=== PATIENT | female | born 2000 | race Caucasian/White ===

== ENCOUNTER 2025-03-27 14:12 | Outpatient (CLI) | payer OTHER, SELFPAY ==
--- NOTE | ~2025-03-27 | MR_ITS ---
EXAMINATION: MR pelvis wo/w con DATE: 03/27/2025 15:32 INDICATION: Ovarian mass TECHNIQUE: Magnetic resonance imaging (MRI) of the pelvis was performed without and with 20 mL Multih ance intravenous contrast. Fullfield sequences of the pelvis included axial and coronal T2-weighted S S FSE, coronal 2D FIESTA, axial T1-weighted FSPGR, axial dual-echo T1-weighted FSPGR and axial T1 claude ghted LAVA. Small field of view sequences included axial, sagittal and coronal T2-weighted FSE cente red on the uterus and adnexa. Postcontrast sequences included a time course axial T1-weighted LAVA w ith full-field of view of the pelvis. COMPARISON: None. FINDINGS: Normal anteverted uterus with normal endometrial complex thickness of 3 mm. Bladder is normal. Right ovary measures 5.7 x 3.5 x 1.8 cm and the left ovary measures 3.9 x 2.7 x 2.5 cm. There are over 20 c m T2 hyperintense cyst/follicles within both the left and right ovaries consistent with polycystic ov kumar disease. There is ar 11.7 x 7.7 x 10.3 cm homogeneously T2 hyperintense simple appearing thin-w alled right adnexal cyst which appears to arise from the cephalad margin of the right ovary. No inter nal septations or solid nodular soft tissue component to suggest neoplasm. Bladder is normal. Visuali zed portion of the bowels including the appendix and the visualized lower portions of the lower poles of both kidneys are normal. No free fluid in the pelvis. No pathologically enlarged abdominal, pelvi c or inguinal lymphadenopathy. Disc desiccation, mild disc height loss, annular fissure and mild post erior disc protrusion at L5-S1. IMPRESSION: 1. 11.7 cm simple appearing right ovarian cyst with numerous subcentimeter cysts/follicles at both ov dean suspicion for polycystic ovarian disease. Reviewed, dictated and finalized at location A. IMPRESSION: 1. 11.7 cm simple appearing right ovarian cyst with numerous subcentimeter cyst s/follicles at both ovaries suspicion for polycystic ovarian disease.
== END 2025-03-27 14:13 | disposition home or self-care (01) ==
PROVIDERS: PCP Internal Medicine; Visit Provider Internal Medicine
DX: N83.8 Other noninflammatory disorders of ovary, fallopian tube and broad ligament (principal); N83.201 Unspecified ovarian cyst, right side
CPT/HCPCS: 72197; A9577

== ENCOUNTER 2025-05-08 14:07 | Outpatient (CLI) | payer OTHER, SELFPAY ==
--- NOTE | 2025-05-08 15:36 | ECG_ITS ---
Test Date: 2025-05-08 15:50:47 Measurements Intervals [place] Rate: 94 P: 33 UT: 170 QRS: 54 QRSD: 98 T: 49 QT: 357 QTc: 447 Interpretive Statements SINUS RHYTHM NORMAL ECG No previous ECG available for comparison Electronically Signed On 05-08-2025 17:19:42 CDT by Dakota Arevalo M.D.
[2025-05-08 16:08] LABS: Anion Gap 7 mmol/L (4-12); Blood Urea Nitrogen 9 mg/dL (7-17); Calcium 9.4 mg/dL (8.4-10.2); Carbon Dioxide 26 mmol/L (22-30); Chloride 103 mmol/L (98-107); Estimated Glomerular Filt Rate > 60; Glucose 105 mg/dL (65-110); Potassium 3.8 mmol/L (3.4-5.0); Sodium 136 mmol/L (137-145)
--- OUTSIDE RECORDS SUMMARY | 2025-05-08 16:40 | XMS_ITS | Encounter Summary ---
Author Organization [facility] Address [address] [place] [address] Care Team Providers Care Reel Worker Name Role Phone Kristopher Courtney MD Primary Care Provider [phone] Encounter Details Date Type Department Care Team (Latest Contact Info) Description 09/25/2024 [place] Message Enc [facility] Mult[facility]pec[facility] Care [place] [address] [address] [address] [place] [address] [place] [address] [place] [address] [address] [place] [address] Ultrasound results Social History Tobacco Use Types Packs/Day Years Used Date Smoking Tobacco: Never Passive Smoke Exposure: Never Smokeless Tobacco: Never Comments:Counseled by Dr. Angelina redmond. Alcohol Use Standard Drinks/Week Comments Not Currently 0 (1 standard drink = 0.6 oz pure alcohol) A couple drinks once or twice a month, socially PHQ-2 Answer Date Recorded Patient Health Questionnaire-2 Score 0 09/04/2024 Comments Unknown Sex and Gender Information Value Date Recorded Sex Assigned at Female 09/18/2024 3:22 PM FURNITURE SALES ASSOCIATE Legal Sex Female 3:00 PM CDT Gender Identity Female 11/28/2024 8:18 AM CDT Sexual Orientation Straight 11/28/2024 8: 18 AM CDT documented as of this encounter Plan of Treatment Upcoming Encounters Date Type Department Care Team (Late st Contact Info) Description 06/08/2025 4:00 PM CDT Office Visit [facility] - [address] [place] [address] Kristopher Courtney MD [address] [place] [address] documented as of this encounter Visit Diagnoses Not on filedocumented in this encounter Additional Health Concerns Assessment Noted Time PHQ-9 Depression Total Score: 1 09/04/19 25 7:48 AM FURNITURE SALES ASSOCIATE documented as of this encounter Care Teams Reel Worker Relationship Specialty Start Date End Date Kristopher Courtney MD [address] [place] [address] PCP - General INTERNAL MEDICINE 06/01/23 documented as of this encounter
--- OUTSIDE RECORDS SUMMARY | 2025-05-08 16:40 | XMS_ITS | Encounter Summary ---
Author Organization [facility] Address [address] [place] [address] Care Team Providers Care Change Management Coordinator Name Role Phone Kristopher Courtney MD Primary Care Provider [phone] Encounter Details Date Type Department Care Team (Late st Contact Info) Description 10/25/2024 Refinder by Gnowsist Message Enc [facility] Mult[facility]ty Care [place] [address] [address] [address] [place], [place] [id number] Kristopher Courtney MD [address] [place] [address] [address] [place] [address] Piero Social History Tobacco Use Types Packs/Day Years [...] Sex Assigned at Female 09/18/2024 3:22 PM BANANA GRADER Legal Sex Female 3:00 PM CDT Gender Identity Female 11/28/2024 8:18 AM CDT Sexual Orientation Straight 11/28/2024 8: 18 AM CDT documented as of this encounter Plan of Treatment Upcoming Encounters Date Type Department Care Team (Late st Contact Info) Description 06/08/2025 4:00 PM CDT Office Visit [facility] - [place] [address] [place] [address] [address] [place] [address] Kristopher Courtney MD [address] [address] documented as of this encounter Visit Diagnoses Not on filedocumented in this encounter Additional Health Concerns Assessment Noted Time PHQ-9 Depression Total Score: 1 09/04/19 25 7:48 AM BANANA GRADER documented as of this encounter Care Teams Change Management Coordinator Relationship Specialty Start Date End Date Kristopher Courtney MD [address] [place] [address] PCP - General INTERNAL MEDICINE 06/01/23 documented as of this encounter
--- OUTSIDE RECORDS SUMMARY | 2025-05-08 16:40 | XMS_ITS | Clinical Summary ---
Author Organization [email or web address] Address [address] [facility] [place] [address] Care Team Providers Care Keyboard Specialist Name Role Phone Unavailable Primary Care Provider Unavailabl e Source Comments [email or web address],non-owned Affiliates and Associated Physician Practices is amultiple site organization consisting of ambulatory clinics and hospital sitesin [place], [place] and [place]. This disclosure is being madepursuant to the Care Everywhere program and may not contain all information available regarding this patient. Last updated 18.[email or web address] Allergies No known active allergies Social History Tobacco Use Types Packs/Day Years Used Date Smoking Tobacco: Never Assessed Comments Unknown Sex and Gender Information Value Date Recorded Sex Assigned at Not on file Legal Sex Female 11:08 AM TANK INSULATOR RUBBER Gender Identity Not on file Sexual Orientation Not on file Plan of Treatment Health Maintenance Due Date Last Done Comments HIV SCREENING 2013 HPV VACCINE (1 - 3-dose series) 2013 HEPATITIS C SCREENING 09/25/2016 DTAP/TDAP/TD VACCINES (1 - Tdap) 2017 HEPATITIS B VACCINE (1 of 3 - 19+ 3-dose series) 2017 DEPRESSION SCREENING 08/23/2024 COVID-19 VACCINE ( - 2024-2 6 season) 2025 10/10/2020, 09/19/2020 INFLUENZA VACCINE (#1) 2025 ZOSTER VACCINE (1 of 2) 2048 HIB VACCINE Aged Out No longer eligi ble based on patient's age to complete this topic MENINGOCOCCAL (Group B) VACCINE SHARED DECISION-MAKING Aged Out No longer eligible based on patient's age to complete this topic MENINGOCOCCAL GROUPS A/C/Y/W VACCINE Aged Out No longer eligible b ased on patient's age to complete this topic PNEUMOCOCCAL VACCINE Aged Out No long er eligible based on patient's age to complete this topic Insurance [place] [address]
--- OUTSIDE RECORDS SUMMARY | 2025-05-08 16:40 | XMS_ITS | Encounter Summary ---
Author Organization [facility] Address [address] [place] [address] Care Team Providers Care Dwarf Tree Grower Name Role Phone Kristopher Courtney MD Primary Care Provider [phone] Encounter Details Date Type Department Care Team (Latest Contact Info) Description 12/31/2023 Snacksquaret Message Enc [facility] Multispecialty [address] [address] [address] [address] [place], [place] [phone] Kristopher Courtney MD [address] [place] [address] [address] [place] [address] HPV Vaccine and Pap records Social History Tobacco Use Types Packs/Day Years Used Date Smoking Tobacco: Never Passive Smoke Exposure: Never Smokeless Tobacco: Never Comments:Counseled by Dr. Angelina redmond. Alcohol Use Standard Drinks/Week Comments Never 0 (1 standard drink = 0.6 oz pur e alcohol) PHQ-2 Answer Date Recorded Patient Health Questionnaire-2 Score 0 08/10/2023 Comments Unknown Sex and Gender Information Value Date Recorded Sex Assigned at Female 09/18/2024 3:22 PM BURNING SUPERVISOR Legal Sex Female 3:00 PM CDT Gender Identity Female 11/28/2024 8:18 AM CDT Sexual Orientation Straight 11/28/2024 8: 18 AM CDT documented as of this encounter Plan of Treatment Upcoming Encounters Date Type Department Care Team (Late st Contact Info) Description 06/08/2025 4:00 PM CDT Office Visit [facility] - [address] [place] [address] Kristopher Courtney MD [facility] [address] documented as of this encounter Visit Diagnoses Not on filedocumented in this encounter Additional Health Concerns Assessment Noted Time PHQ-9 Depression Total Score: 1 08/10/20 23 3:44 PM BURNING SUPERVISOR documented as of this encounter Care Teams Dwarf Tree Grower Relationship Specialty Start Date End Date Kristopher Courtney MD [address] [place] [address] PCP - General INTERNAL MEDICINE 06/01/23 documented as of this encounter
--- OUTSIDE RECORDS SUMMARY | 2025-05-08 16:40 | XMS_ITS | Clinical Summary ---
Author Organization [facility] Address [facility] [place] [address] Care Team Providers Care Carpet Journeyman Name Role Phone Kristopher Courtney MD Primary Care Provider [phone] Allergies Active Allergy Reactions Criticality Noted Date Comments Tirzepatide GI Upset 11/28/2024 Medications EEVLIN NAKIA 09/11 1-20 MG-MCG tablet 2 Active ondansetron (ZOFRAN) 4 MG tabletIndication s:Nausea Take 1 tablet (4 mg total) by mouth every 8 (eight) hours as needed. 30 tablet 5 Active Additional Information Patient taking differently: No details specified, Reason: on 7mg till pharmacy can get 14mg, Reported on 02/28/2025 fenofibrate 160 MG tabletIndication s:Hypertriglycer idemia Take 1 tablet (160 mg total) by mouth daily. 90 tablet 1 5 Active semaglutide (RYBELSUS) 14 MG tabletIndication s:Diabetes Mellitus Take 1 tablet (14 mg total) by mouth every morning before breakfast. Indications: Diabetes 90 tablet 1 5 Active topiramate (TOPAMAX) 25 MG tabletIndication s:Class 3 severe obesity due to excess calories with serious comorbidity and body mass index (BMI) of 40.0 to 44.9 in adult (CMS/[facility]) Take one tablet daily for the first 7 days then change to one tablet twice daily. 60 tablet 3 5 Active metFORMIN ER (GLUCOPHAGE-XR) 500 MG 24 hr tabletIndication s:Type 2 diabetes mellitus with hyperglycemia, without long-term current use of insulin ([facility]) Take 2 tablets (1,000 mg total) by mouth daily with breakfast. 180 tablet 1 Active Active Problems Problem Noted Date Diagnosed Date PCOS (polycystic ovarian syndrome) 04/02/2025 Hypertriglyceridemia 12/31/2023 Diabetes mellitus due to und erlying condition with hyperglycemia, without long-term current use of insulin ([facility]) 12/28/2023 Encounters Date Type Department Care Team Description 04/02/2025 Telephone [place] [id number] [facility] [address] [place] [address] Kristopher Courtney MD Referral 03/27/2025 [employer] INFO SRVCS Scanned, Doc [facility] MRI (SCAN) 02/28/2025 4:00 PM CDT Office Visit [place] [address] [address] [facility] [address] [place] [address] Kristopher Courtney MD Follow Up (Patient is here for 3 month follow up about blood sugars. She does not check at home but says that she is monitoring it with the doctor. ); Weight Problem; Diabetes 02/28/2025 Results Follow-Up [place] [id number] [facility] [address] [place] [address] Kristopher Courtney MD HEMOGLOBIN, GLYCOSYLATED 02/28/2025 Travel from Last 3 Months Immunizations Immunization Administration Dates Next Due Fluzone (IIV3, Trivalent, 0.5 ML Prefilled Syrin ge) 06/01/2024 Fluzone 6 Months+ Quad (0.5 mL Prefilled Syringe ) 08/10/2023 Pneumococcal (Prevnar 20) 09/29/2023 Tdap (Generic) 06/12/2020 Family History Medical History Relation Comments Alcohol Abuse Father Defects Maternal Grandfather Cancer Maternal Grandfather throar canc er Diabetes Maternal Grandfather Defects Paternal Grandmother Cancer Paternal Grandmother breast canc er Relation Status Comments Father Maternal Grandfather Paternal Grandmother Social History Tobacco Use Types Packs/Day Years Used Date Smoking Tobacco: Never Passive Smoke Exposure: Never Smokeless Tobacco: Never Tobacco Cessation:Counseling Given: Yes Comments:Counseled by Dr. Courtney. Alcohol Use Standard Drinks/Week Comments Not Currently 0 (1 standard drink = 0.6 oz pure alcohol) A couple drinks once or twice a month, socially PHQ-2 Answer Date Recorded Patient Health Questionnaire-2 Score 0 02/28/2025 Comments No Sex and Gender Information Value Date Recorded Sex Assigned at Female 09/18/2024 3:22 PM AIR BATTLE MANAGER Legal Sex Female 3:00 PM CDT Gender Identity Female 11/28/2024 8:18 AM CDT Sexual Orientation Straight 11/28/2024 8: 18 AM CDT Last Filed Vital Signs Vital Sign Reading Time Taken Comments Blood Pressure 115/83 02/28/2025 4:36 PM CDT Pulse 102 02/28/2025 4:36 PM CDT Temperature 36.8 C (98.2 F) 02/28/2025 4:36 PM CDT Respiratory Rate 16 02/28/2025 4:36 PM CDT Oxygen Saturation 97% 02/28/2025 4:36 PM CDT Inhaled Oxygen Concentration - - Weight 106.1 kg (234 lb) 02/28/2025 4:36 PM CDT Height 157.5 cm (5' 2) 02/28/2025 4:36 PM CDT Body Mass Index 42.8 02/28/2025 4:36 PM CDT Plan of Treatment Upcoming Encounters Date Type Department Care Team (Late st Contact Info) Description 06/08/2025 4:00 PM CDT Office Visit [facility] Multispecialty Care - [place] [address] [address] [address] [place] [address] Kristopher Courtney MD [address] [place] [address] Health Maintenance Due Date Last Done Comments HPV Vaccines (1 - 3-dose series) 2013 Hepatitis B Vaccines (1 of 3 - 19+ 3-dose series) 2017 COVID-19 Vaccine ( season) 2025 06/10/2021, 10/10/2020, 09/19/2020 Hemoglobin A1C 08/31/2025 02/28/2025, 08/23, 05/02/2024, Additional history exists Annual Physical 09/04/2025 09/04/2024, 08/10/2023 Kidney Health Evaluation 09/04/2025 09/04/2024 Lipid Panel 09/04/2025 09/04/2024, 04/23, 12/30/2023, Additional history exists Diabetes: Retinopathy Eye Exam 09/19/2026 09/19/2024 Cervical Cancer Screening Pap Smear (Age 21 to 29) Every 3 Years 09/12/2027 09/12/2024, 05/07/2021, 09/04/2020 Cervical Cancer Screening 09/12/2027 DTaP, Tdap and Td Vaccines (2 - Td or Tdap) 06/12/2030 06/12/2020 Chlamydia Screening Females ages 16-24 Discontinued 05/07/2021 Hepatitis C Completed 08/25/2023 Pneumococcal Vaccine: Pediatrics (0 to 5 Years) and At-Risk Patients (6 to 49 Years) Completed 09/29/2023 PHQ-2 (Physician [place]) Completed 02/28/2025 Meningococcal B Vaccine Aged Out No l onger eligible based on patient's age to complete this topic Meningococcal Vaccine Aged Out No andrew gifty eligible based on patient's age to complete this topic RSV Immunizations Under 20 Months Aged Out No longer eligible based on patient's age to complete this topic Procedures Procedure Name Priority Date/Time Associated Diagnosis Comments MRI GENERIC 03/27/2025 COLLECT.CAPILLARY (FNGR,HEEL,EAR) Routine 02/28/2025 4:40 PM CDT Diabetes mellitus due to underlying condition with hyperglycemia, without long-term current use of insulin ([facility]) HEMOGLOBIN, GLYCOSYLATED Routine 02/28/2025 Diabetes mellitus due to underlying condition with hyperglycemia, without long-term current use of insulin ([facility]) DIABETIC RETINOPATHY EXAM (NEGATIVE)(SCAN ORDER) Routine 09/19/2024 LIPID PANEL Routine 09/04/2024 7:48 AM AIR BATTLE MANAGER Annual physical exam General medical exam Screening for hyperlipidemia Drug therapy HEPATITIS C ANTIBODY Routine 08/25/2023 7:14 AM AIR BATTLE MANAGER Annual physical exam Establishing care with new doctor, encounter for General medical exam Encounter for hepatitis C screening test for low risk patient OUTSIDE CYTOPATH CERV/VAG INTERPRET (PAP) 09/04/2020 from Last 3 Months or Most Recently Relevant to Health Maintenance Results * MRI GENERIC (03/27/2025) Anatomical Region Laterality Modality Other 03/27/2025 [facility] Scanned SCANNING Final Resu lt * HEMOGLOBIN, GLYCOSYLATED (02/28/2025) HGB A1C 5.5 % [id number], [place] 02/28/2025 Kristopher Courtney MD LABORATORY Final Result Performing Organization Address City/[facility]/ZIP Co de Phone Number -[phone], [place] [address] [facility] [address] [place] [address], [place] [phone] * DIABETIC RETINOPATHY EXAM (NEGATIVE) (09/19/2024) [facility] Scanned SCANNING Final Resu lt [facility] * (ABNORMAL) LIPID PANEL (09/04/2024 7:48 AM AIR BATTLE MANAGER) CHOLESTEROL 174 <200 MG/DL 09/04/2024 2:[address] [facility] TRIGLYCERIDES 77 <150 MG/DL 09/04/2024 2:[address] [facility] HDL 55 >40 MG/DL 09/04/2024 2:49 [address]LE [address] [facility] LDL-C 104(H) <100 MG/DL 09/04/2024 2:[address]LE [address] [facility] VLDL CALCULATION 15 5 - 28 MG/DL 09/04/2024 2:[address]LE [address] [facility] CHOL/HDL RATIO 3.2 0.0 - 4.0 09/04/2024 2:[address] [facility] LDL/HDL 1.9 0.41 - 2.13 09/04/2024 2:49 [address]LE [address]GER [facility] NON HDL CHOLESTEROL 119 <140 MG/DL 09/04/2024 2:[address] [facility] 09/04/2024 7:48 AM AIR BATTLE MANAGER Kristopher Courtney MD LABORATORY Final Result Performing Organization Address City/[facility]/ZIP Co de Phone Number [facility] [address] [place] [address], [place] [phone] * HEPATITIS C ANTIBODY (08/25/2023 7:14 AM AIR BATTLE MANAGER) HEPATITIS C AB NON-REACTI VE NON-REACT SVITLANA 08/25/2023 10:35 PM AIR BATTLE MANAGER [facility] Comment: ANTIBODIES TO HCV NOT DETECTED. DOES NOT EXCLUDE THE POSSIBILITY OF EXPOSURE TO HCV. 08/25/2023 7:14 AM AIR BATTLE MANAGER Kristopher Courtney MD LABORATORY Final Result Performing Organization Address City/[facility]/ZIP Co de Phone Number [facility] [address] [place] [address], [place] [phone] * PAP SMEAR WITH HPV (09/04/2020) 09/04/2020 [facility] Scanned SCANNING Final Resu lt from Last 3 Months or Most Recently Relevant to Health Maintenance [facility] Care [facility] Carpet Journeyman Relationship Specialty Start Date End Date Kristopher Courtney MD [address] [facility] [address] [place] [address] PCP - General INTERNAL MEDICINE 06/01/23
== END 2025-05-08 14:08 | disposition home or self-care (01) ==
LOC: ANHSURGERY 15:24
PROVIDERS: Anesthesiology; Visit Provider Obstetrics & Gynecology
DX: E11.9 Type 2 diabetes mellitus without complications (principal); Z01.818 Encounter for other preprocedural examination
CPT/HCPCS: 36415; 80048; 93005

== ENCOUNTER 2025-05-16 01:27 | Day surgery (SDC) | payer OTHER, SELFPAY ==
[2025-05-07 14:12] VITALS: BMI 39.9
--- NOTE | 2025-05-07 14:19 | PC.NURSE ---
Report to the Outpatient Waiting Room, entrance under the green pavilion located off [facility], at time _1130_ on date _[id number]_. Planned Procedure Time: _130pm_.? Time changes happen often and if your time is changed the preop area will call you the afternoon before. - You and your visitor will be asked to self-screen and do not enter if you have any COVID symptoms. Please call surgeon if you need to reschedule. - A mask is optional within the hospital at this time. Patients may have clear liquids (water, carbonated beverages, clear teas, apple juice) until 3 hours prior to surgery with a maximum of 20 ounces. - No food from midnight until time of surgery and no smoking, or chewing tobacco (or any form of nicotine). No chewing gum, candy or mints. Take only the following medications with a SIP of water on the morning of surgery: ___Haily fe____ DO NOT STOP ANY OF YOUR OTHER PRESCRIPTION MEDICATIONS PRIOR TO SURGERY EXCEPT THE FOLLOWING Hold all vitamins and supplements for 3 days per anesthesiologist. 05-12-2025 Medications to discontinue per physician ___Rybelsus____ Stop now. Date to take last dose Please no make-up, nail sami, hairspray, perfume, deodorant, or body powder the day of surgery.? No jewelry (including any body piercings) or valuables the day of surgery, leave them at home.? Please take a shower or bath the night before, or the morning of, surgery with an antibacterial soap.? Wear comfortable, loose fitting clothing.? - Jewelry must be removed prior to entering the operating room.? Rings and piercings that are not removed may be cut off. - The hospital will not accept responsibility for valuables.? - Please leave all valuables, including medications, at home the day of surgery. If you are going home after surgery, a licensed delivery driver/customer service must drive you home.? - NO public transportation without another adult if you receive anesthesia. - We recommend that an adult stay with you for 24 hours following discharge. - We also recommend that you do not drive, make important decision, drink alcoholic beverages, or take any drugs that were not prescribed by your health care provider for at least 24 hours after your discharge time. Follow any additional instructions given to you from your surgeon. Telephone instructions given to __Ruth__and asked if any additional questions and then verbalized understanding. Patient advised to call surgeon office or pre surgery nurse liaison [phone] if any additional questions.
[2025-05-16] VITALS (9 sets, daily range): BP systolic 109–134; BP diastolic 58–74; PULSE 72–93; RESP 12–20; TEMP 36.4–36.6; O2SAT 98–100; BMI 39.1
[2025-05-16] MEDS: LACTATED RINGERS 1,000 ML 30 ML IV CONT ×2 (11:50→13:33)
[2025-05-16] MEDS: KETOROLAC 15 MG/ML VIAL (*BKC) IV PUSH (11:55)
[2025-05-16] MEDS: ACETAMINOPHEN 500 MG TABLET 1000 MG PO (11:55)
--- NOTE | 2025-05-16 11:57 | PM.IMHP ---
H&P: HPI History of Present Illness Date/Time: 05/16/25 11:57 Chief Complaint: Ovarian cyst Narrative: 24-year-old female with large ovarian cyst. We agreed to perform her laparoscopic right ovarian cystectomy. She understands risks, benefits, and alternatives. She has completed informed consent process is ready to proceed. The patient understands the details of the procedure. The procedure has been explained in detail. She understands the risks. She understands that injuries may occur that result in hospitalization, more surgery, and severe illness. She understands risk of hemorrhage and infection. She denies any chest pain or shortness of breath. She denies any nausea, vomiting, fever, chills. Review of Systems Review of Systems: All systems reviewed & are unremarkable except as noted in HPI and below Constitutional: Constitutional: Denies chills, Denies fatigue, Denies fever(s) and Denies weakness Eyes: Eyes: Denies blurry vision, Denies change in vision, Denies loss of peripheral vision, Denies loss of vision, Denies other visual disturbances and Denies eye pain ENT: Denies vertigo, Denies dizziness, Denies hearing loss, Denies mouth pain, Denies nasal obstruction, Denies neck mass and Denies neck pain Cardiovascular: Cardiovascular: Denies chest pain, Denies diaphoresis, Denies syncope, Denies leg edema and Denies dyspnea Respiratory: Respiratory: Denies chest congestion, Denies cough, Denies hemoptysis, Denies dyspnea and Denies wheezing Gastrointestinal: Gastrointestinal: Denies abdominal pain, Denies constipation, Denies diarrhea, Denies nausea and Denies vomiting Genitourinary: Genitourinary: Denies hematuria, Denies change in libido, Denies nocturia, Denies genital lesions, Denies flank pain and Denies urinary urgency Musculoskeletal: Musculoskeletal: Denies abnormal gait, Denies back pain, Denies myalgias, Denies arthralgias, Denies joint swelling, Denies muscle weakness and Denies neck pain Integumentary/Breasts: Skin/Breast: Denies swelling, Denies breast pain, Denies breast mass, Denies dry skin, Denies nipple discharge, Denies unusual bruising and Denies jaundice Neurologic: Denies Neuro-related abnormal movements, Denies Abnormal speech present, Denies abnormal gait, Denies behavioral changes, Denies confusion, Denies vertigo, Denies dizziness, Denies syncope, Denies loss of vision, Denies memory loss, Denies convulsions and Denies weakness Psychiatric: Psychiatric: Denies abnormal sleep pattern, Denies behavioral changes, Denies change in libido, Denies confusion, Denies depression, Denies anhedonia and Denies memory loss Endocrine: Endocrine: Reports no additional endocrine complaints, Denies change in libido and Denies fatigue Hematologic/Lymphatic: Hematologic/Lymphatic: Reports no additional hematologic/lymphatic complaints Allergic/Immunologic: Allergic/Immunologic: Reports no additional allergic/immunologic complaints and Denies wheezing PMFSH Social History Social History Smoking status: Never smoker Alcohol intake: current Substance use type: marijuana Other substance usage details: Not often Living arrangements: with family Spiritual care concerns: No Meds Home Medications and Allergies Home Medications ?Medication ?Instructions ?Recorded ?Confirmed ?Type ascorbic acid (vitamin C) 500 mg 500 mg PO DAILY 05/07/25 05/07/25 History tablet (C-500) fenofibrate 160 mg tablet 160 mg PO DAILY 05/07/25 05/07/25 History metformin 500 mg tablet,extended 500 mg PO DAILY 05/07/25 05/07/25 History release 24 hr norethindrone 1 mg-ethinyl 1 tablet PO DAILY 05/07/25 05/07/25 History estradiol 20 mcg (24)-iron 75 mg (4) tablet (Reny 24 Fe) semaglutide 14 mg tablet (Rybelsus) 14 mg PO DAILY 05/07/25 05/07/25 History topiramate 25 mg tablet 25 mg PO BID 05/07/25 05/07/25 History Allergies Allergy/AdvReac Type Severity Reaction Status Date / Time tirzepatide (From [facility]) AdvReac Severe Nausea and Verified 05/07/25 14:08 Vomiting Exam Const: General: cooperative, healthy appearing, comfortable and no acute distress Orientation/consciousness: oriented to person, oriented to place and oriented to time HENMT: Head: normal to inspection Ears: external ears normal Face/Nose/Sinus: Normal external nose present and normal facial exam Face and sinus: normal facial exam Eyes: General: appearance normal, both eyes and all related structures Neck: Neck: normal visual inspection, trachea midline and supple Resp: Auscultation: clear to auscultation bilaterally, no crackles, no rales, no rhonchi and no wheezes Cardio: Rate: regular rate Rhythm: regular rhythm Heart sounds: no click, no murmurs and no rubs GI: GI Palp: No abdominal tenderness, No Soft to palpation, No Tenderness to palpation present (GI) and No Palpable mass present Auscultation: normal bowel sounds Skin: General skin exam: normal color and no rashes or lesions noted Neuro: General: oriented to person, oriented to place and oriented to time Extrem: General: normal to inspection, no joint enlargement, no clubbing, cyanosis or edema, no pedal edema and no calf tenderness Psych: Appearance: grossly normal Mental Status: mental status grossly normal Speech and movement: Normal speech and movement present Assessment and Plan Assessment and plan (1) Ovarian cyst: Code(s): N83.209 - Unspecified ovarian cyst, unspecified side Status: Acute Assessment and Plan: 24-year-old female with large ovarian cyst. We agreed to perform her laparoscopic right ovarian cystectomy. She understands risks, benefits, and alternatives. She has completed informed consent process is ready to proceed.
--- NOTE | 2025-05-16 11:58 | WPDHPUPDATE1 ---
History and Physical Update Update Date/Time: 05/16/25 11:58 History and Physical has been reviewed, including an updated exam of the patient. There are NO changes in the patient's condition. Risks, benefits, and alternatives have been discussed and questions answered. Patient agrees to proceed with procedure.
--- NOTE | 2025-05-16 12:08 | WPDANESEPPF ---
Anes - Initial Pre Proc Eval Procedure: Operation Date: 05/16/25 13:30 Proposed Procedures p Laparoscopic Right Ovarian Cystectomy - Thomas Ribeiro MD Date/Time: 05/16/25 12:08 Surgeon: Thomas Ribeiro MD Pre Op Diagnosis: Cyst Right Ovary Patient Data Age: 24 Gender: F Height: 1.6 m Weight: 102.3 kg Allergies Allergy/AdvReac Type Severity Reaction Status Date / Time tirzepatide (From [facility]) AdvReac Severe Nausea and Verified 05/16/25 11:59 Vomiting Home Medications ?Medication ?Instructions ?Recorded ?Confirmed ?Type ascorbic acid (vitamin C) 500 mg 500 mg PO DAILY 05/07/25 05/16/25 History tablet (C-500) fenofibrate 160 mg tablet 160 mg PO DAILY 05/07/25 05/07/25 History metformin 500 mg tablet,extended 500 mg PO DAILY 05/07/25 05/07/25 History release 24 hr norethindrone 1 mg-ethinyl 1 tablet PO DAILY 05/07/25 05/07/25 History estradiol 20 mcg (24)-iron 75 mg (4) tablet (Reny 24 Fe) semaglutide 14 mg tablet (Rybelsus) 14 mg PO DAILY 05/07/25 05/16/25 History topiramate 25 mg tablet 25 mg PO BID 05/07/25 05/07/25 History Laboratory Tests 05/16/25 11:57 POC Capillary Glucose 70 mg/dl (65-105) Patient hx anesthesia problems: none Family hx anesthesia problems: none Results Review: All pre-operative results and documents have been reviewed as part of the pre-operative evaluation. [facility] Social History Social History Smoking status: Never smoker Alcohol intake: current Substance use type: marijuana Other substance usage details: Not often Living arrangements: with family Spiritual care concerns: No Anes - Eval Final PreProcedure Day of Procedure 05/16/25 12:08 Patient weight: obese Lungs: normal air movement Airway: Mallampati scale class II and special considerations (Upper and lower perm bridgework noted. ) Neurological: alert and oriented Last oral intake: >/= 8 hours ASA classification: III Emergent: no Anesthetic plan: proceed Anesthesia type and monitoring: general ETT and standard monitoring Results Review: All pre-operative results and documents have been reviewed as part of the pre-operative evaluation. BMI 40, preDM on 2 meds, fsbs 70 this am. Informed Consent: The patient's anesthetic plan and its attendant risks and benefits were discussed with the patient/family/POA. Questions were solicited and answers provided to the satisfaction of the patient/family/POA.
--- NOTE | 2025-05-16 13:06 | S_PTH ---
PATIENT: Ruth Cummings LOC: [facility] U#:[id number] AGE/SX: 24/F ROOM: RE05/16/[address]: Thomas Ribeiro MD : 2000 BED: DIS: 05/16/2025 SPEC #: [id number] RECD: 05/16/25 13:55 STATUS: AR REGavin #: [id number] SURESH: 05/16/25 13:[address]: Thomas Ribeiro DEPT: [facility] Surgical RECD BY: Tammy Ledesma ENTERED: 05/16/25 13:55 SP TYPE: Surgical OTHR DR: Kristopher CourtneyMD Tissues: A - Fallopian Tube Single Procedures: Gross and Microscopic Level 2 Hematoxylin and Eosin Stain
[2025-05-16 13:09] LABS: BEDSIDEPREGUCG Negative (Negative)
[2025-05-16] MEDS: fentaNYL CITRATE INJ (*CRX) 100 MCG/2 ML VIAL 25 MCG IV PUSH ×2 (14:01→14:13)
--- NOTE | 2025-06-09 23:45 | W.PM.PROC2 ---
Procedure Note - Detailed Date of Procedure 06/09/25 Pre-op Diagnosis Cyst Right Ovary Post-op Diagnosis Same Procedure Performed Diagnostic laparoscopy Surgeon Thomas Ribeiro MD Anesthesia General Indications Pelvic pain Findings 6-8 cm right ovarian cyst with fallopian tube stretched over the cyst and likely dysfunctional Description of Procedure The patient was taken to the operating room. She was prepped and draped in the dorsal lithotomy position after induction general anesthesia. A 5 mm incision was made with a scalpel on the abdominal skin in the left upper quadrant of the abdomen. A 5 mm trocar was inserted into the intra-abdominal cavity under direct visualization the scope. In the same fashion a 11 mm left lower quadrant trocar was inserted and a 11 mm infraumbilical trocar was inserted. cyst on the right ovary was removed using sharp dissection and cautery. It was around 8 cm. Fallopian tube was stretched over it. The fallopian tube was removed as well. The meso salpinx in that area was cauterized transected in stepwise fashion to the cornual region of the uterus and the tube was transected with cautery. The fallopian tube and ovarian cysts were placed in endobag and taken out the left lower quadrant trocar site. The pelvis was irrigated. The pneumoperitoneum was reduced. The trocars were removed. Skin was closed with subcuticular 4 micro. The patient's incisions were covered with Dermabond. She was taken recovery room in stable condition. Sponge lap and needle counts were correct x2. Complications No immediate complications Condition Stable Disposition Same day
== END 2025-05-16 15:25 | disposition home or self-care (01) ==
PROVIDERS: Anesthesiology; PCP Internal Medicine; Visit Provider Obstetrics & Gynecology
PROC: (CPT 49320; principal; 2025-05-16 13:30)
DX: D27.0 Benign neoplasm of right ovary (principal); R73.03 Prediabetes; F12.90 Cannabis use, unspecified, uncomplicated; E66.9 Obesity, unspecified; Z68.39 Body mass index [BMI] 39.0-39.9, adult; Z79.84 Long term (current) use of oral hypoglycemic drugs
CPT/HCPCS: 49320; 82948; 88302; A9270; J1100; J1885; J2003; J2250; J2405; J2704; J3010; J7030; J7120; Q9968